=== PATIENT | male | born 1990 | race Caucasian/White ===

== ENCOUNTER 2017-02-17 20:39 | Emergency (ER) | payer SELFPAY ==
[~2017-02-17] VITALS: Ht 170.2 cm; Wt 63.5 kg
[2017-02-17 21:28] VITALS: BP 125/77; PULSE 95; RESP 18; TEMP 98.4; O2SAT 98
[2017-02-17] MEDS ORDERED: TETANUS/DIPHTHERIA TOXOID ADULT 0.5 ML VIAL IM ONE (22:00)
[2017-02-17] MEDS ORDERED: AMOXICILLIN/CLAVULANATE K 875 MG TAB PO ONE (22:00)
[2017-02-17] MEDS ORDERED: AUGM875T3 PO (22:11)
--- NOTE | 2017-02-17 22:14 | PD ---
HPI Chief Complaint: Bite or Sting Time Seen by Provider: 21:56 Travel History International Travel<30 days: No Contact w/Intl Traveler<30days: No Traveled to known affect area: No History of Present Illness HPI The patient is a 26-year-old male that was walking to his car and saw dog that appeared playful at first and then the dog jumped on him and bit him in the left flank. The dog appeared healthy. The dog has been running around the area free and the bite was reported to the [employer] and the [employer] thinks they know which home the dog came from. When they checked the home however no one was home. The patient states his last tetanus shot was well over 10 years. He denies any other injury. [facility] Past Medical History Medical History: Denies Significant Hx Diminished Hearing: No Immunizations Current: Yes Tetanus Vaccination: > 5 Years Influenza Vaccination: No Past Surgical History Surgical History: No Previous Surgery Social History Alcohol Use: Yes (rare) Tobacco Use: Yes (1 pk) Substance Use: No Allergies-Medications (Allergen,Severity, Reaction): Coded Allergies: No Known Allergies (Verified Allergy, Mild, 02/17/17) Reported Meds & Prescriptions Reported Meds & Active Scripts Active No Active Prescriptions or Reported Medications Review of Systems Except as stated in HPI: all other systems reviewed are Neg Physical Exam Narrative GENERAL: The patient is alert, oriented 3 and slight apparent distress with his left flank dog bite. His vital signs are normal. SKIN: Focused skin assessment warm/dry. There is a circular direct bite over the left flank. The skin has been broken by teeth and several areas. There is no area that needs to be sutured. The shirt is ripped over the dog bite. The dog created the tear in the shirt. HEAD: Atraumatic. Normocephalic. EYES: Pupils equal and round. No scleral icterus. No injection or drainage. ENT: No nasal bleeding or discharge. Mucous membranes pink and moist. NECK: Trachea midline. No JVD. CARDIOVASCULAR: Regular rate and rhythm. No murmur appreciated. RESPIRATORY: No accessory muscle use. Clear to auscultation. Breath sounds equal bilaterally. GASTROINTESTINAL: Abdomen soft, non-tender, nondistended. Hepatic and splenic margins not palpable. MUSCULOSKELETAL: No obvious deformities. No clubbing. No cyanosis. No edema. NEUROLOGICAL: Awake and alert. No obvious cranial nerve deficits. Motor grossly within normal limits. Normal speech. PSYCHIATRIC: Appropriate mood and affect; insight and judgment normal. Data Data Last Documented VS Vital Signs Date Time Temp Pulse Resp B/P (MAP) Pulse Ox O2 Delivery O2 Flow Rate FiO2 02/17/17 21:28 98.4 95 18 125/77 (93) 98 Orders Orders Wound Care (02/17/17 21:57) Tetanus/Diphtheria Tox Adult (Tetanus/Di (02/17/17 22:00) Amoxicil-Clavulanate (Augmentin) (02/17/17 22:00) MDM Medical Decision Making Medical Screen Exam Complete: Yes Emergency Medical Condition: Yes Medical Record Reviewed: Yes Differential Diagnosis Dog bite needing suturing, dog bite not needing suturing Narrative Course This dog bite does not need suturing. It needs cleaning and bandaging and the patient will be put on Augmentin 875 twice daily for 10 days. He is to return to the emergency department if worse. Diagnosis Primary Impression: Dog bite Additional Instructions: Use warm compresses twice daily on the area. The antibiotic is taken one tablet twice daily. Change the bandage twice daily and put antibiotic ointment over it. If worse, return to the emergency department for reevaluation. A heating pad is also useful. Turn it on its lowest setting an interpose a towel between your skin and the pad. Med/Other Pt SpecificInfo: Prescription(s) given Scripts Amoxicillin-Clavulanate (Augmentin) 875-125 Mg Tab 1 TAB PO BID for Infection for 10 Days, #20 TAB 0 Refills Prov: Jg Watt MD 02/17/17 Disposition: 01 DISCHARGE HOME Condition: Stable Jg Watt MD Feb 17, 2017 22:14
== END 2017-02-17 22:26 | disposition home or self-care (01) ==
LOC: PHED 20:39 → PHEFT 22:26
DX: S31.154A Open bite of abdominal wall, left lower quadrant without penetration into peritoneal cavity, initial encounter (principal); W54.0XXA Bitten by dog, initial encounter; Y93.01 Activity, walking, marching and hiking; Z23 Encounter for immunization
CPT/HCPCS: 90471; 90714